=== PATIENT | female | born 1980 | race Caucasian/White ===

== ENCOUNTER → 2017-06-20 | Outpatient (CLI) | payer OTHER ==
--- NOTE | ~2017-06-20 | 2DMMODE ---
[facility] [place] [address] 2 D/M-MODE ECHOCARDIOGRAM Name: JUNIOR EDUARDO Room #: REG Praveen#: [id number] Admission: 06/20/17 Attend Phys: David Vallejo, Discharge: Date of : 76 Date of Service: 06/20/17 1451 Report #: [id number] THIS REPORT FOR: //name// APPROVED REPORT Study performed: 06/20/2017 10:25:58 EXAM: Comprehensive 2D, Doppler, and color-flow Echocardiogram Patient Location: Out-Patient Status: routine Other Information Study Quality: Fair Technically limited study due to morbid obesity. Indications History of possible aortic valve disease. Echo Enhancing Agent Indication: Endocardial border delineation Agent(s) / Amount(s) Used: Optison 3 cc 2D Dimensions RVDd: 39.85 mm LVEF(%): 65.88 (>50%) IVSd: 12.80 (7-11mm) LVOT Diam: 21.39 (18-24mm) LVDd: 58.72 mm PWd: 11.54 (7-11mm) LVDs: 37.09 (25-40mm) Aortic Root: 31.60 mm Yao's LVEF: 65.88 % Volumes Left Atrial Volume (Systole) Single Plane 4CH: 76.01 mL Single Plane 2CH: 75.08 mL LA ESV Index: 29.00 mL/m2 Aortic Valve AoV Peak Anselmo.: 2.30 m/s AO Peak Gr.: 21.20 mmHg LVOT Max P.54 mmHg AO Mean Gr.: 11.91 mmHg AO V2 Mean: 1.66 m/s LVOT Max V: 1.77 m/s AO V2 VTI: 43.53 cm FENG Vmax: 2.76 cm2 [facility] [place] [address] 2 D/M-MODE ECHOCARDIOGRAM Name: JUNIOR EDUARDO MAME Room #: KEVIN Morton#: [id number] Admission: 06/20/17 Attend Phys: David Vallejo, Discharge: Date of : 76 Date of Service: 06/20/17 1451 Report #: [id number] Mitral Valve E/A Ratio: 1.3 MV Decel. Time: 236.33 ms MV E Max Anselmo.: 1.21 m/s MV A Anselmo.: 0.95 m/s MV PHT: 68.54 ms IVRT: 59.98 ms Pulmonary Valve PV Peak Anselmo.: 1.32 m/s PV Peak Gr.: 6.95 mmHg Pulmonary Vein P Vein S: 0.71 m/s P Vein A: 0.28 m/s P Vein D: 0.59 m/s P Vein A Dur.: 143.0 msec P Vein S/D Ratio: 1.20 Tricuspid Valve RAP Estimate: 5.00 mmHg Left Ventricle The left ventricle is normal size. There is normal LV segmental wall motion. Left ventricular systolic function is normal. LVEF is 65%. The left ventricular diastolic function is normal. Right Ventricle The right ventricle is normal size. Atria Left atrium is at the upper limits of normal. The right atrium size is normal. Aortic Valve The aortic valve is poorly visualized. No aortic regurgitation noted. There is no aortic valvular stenosis. Mitral Valve The mitral valve is normal in structure. There is no mitral valve regurgitation noted. No evidence of mitral valve stenosis. Tricuspid Valve Tricuspid valve is not well visualized. Pulmonic Valve Pulmonic valve is not well visualized. Trace pulmonic regurgitation. [facility] [address] [place] [address] 2 D/M-MODE ECHOCARDIOGRAM Name: JUNIOR EDUARDO MAME Room #: KEVIN HEATHER Morton#: [id number] Admission: 06/20/17 Attend Phys: David Vallejo, Discharge: Date of : 76 Date of Service: 06/20/17 1451 Report #: [id number] Great Vessels The aortic root is normal in size. Ascending aorta is not well visualized. IVC is normal in size and collapses >50% with inspiration. Pericardium There is no pericardial effusion. <Conclusion> The left ventricle is normal size. Left ventricular systolic function is normal. The right ventricle is normal size. Left atrium is at the upper limits of normal. There is no aortic valvular stenosis. The mitral valve is normal in structure. There is no pericardial effusion. <ELECTRONICALLY SIGNED> By: Oscar Flores MD 06/20/17 1451 145 145 Oscar Flores MD /INF
== END ==
LOC: CV 09:52
DX: I10 Essential (primary) hypertension (principal); I35.9 Nonrheumatic aortic valve disorder, unspecified

== ENCOUNTER → 2017-09-26 | Outpatient (CLI) | payer OTHER ==
--- NOTE | ~2017-09-26 | 2DMMODE ---
[facility] [place] [address] 2 D/M-MODE ECHOCARDIOGRAM Name: JUNIOR EDUARDO Room #: REG [facility] [id number] Admission: 09/26/17 Attend Phys: David Vallejo, Discharge: Date of : 76 Date of Service: 09/26/17 1727 Report #: [id number] THIS REPORT FOR: //name// APPROVED REPORT Study performed: 09/26/2017 13:49:39 EXAM: Comprehensive 2D, Doppler, and color-flow Echocardiogram Patient Location: Out-Patient Room #: Echo lab Status: routine BSA: 2.85 HR: 70 bpm BP: 183/92 mmHg Other Information Study Quality: Adequate Indications Dyspnea Hypertension/HDD Echo Enhancing Agent Indication: Endocardial border delineation Agent(s) / Amount(s) Used: Optison 5 cc Left Ventricle The left ventricle is normal size. Regional wall motion is not well visualized but grossly normal. Mild concentric left ventricular hypertrophy. The left ventricular systolic function is normal. The left ventricular ejection fraction is within the normal range. LVEF is 65%. Right Ventricle The right ventricle is normal size. The right ventricular systolic function is normal. Atria The left atrium size is normal. The right atrium size is normal. Aortic Valve The aortic valve is not well visualized. Mitral Valve [facility] [employer] [place] [address] 2 D/M-MODE ECHOCARDIOGRAM Name: JUNIOR EDUARDO Room #: REG [facility]annaMemo#: [id number] Admission: 09/26/17 Attend Phys: David Vallejo, Discharge: Date of : 76 Date of Service: 09/26/171726 Report #: [id number] The mitral valve is normal in structure. Tricuspid Valve Tricuspid valve is not well visualized. Pulmonic Valve Pulmonic valve is not well visualized. Great Vessels The aortic root is normal in size. Pericardium There is no pericardial effusion. <Conclusion> Very limited study. Abbreviated The left ventricular systolic function is normal. Regional wall motion is not well visualized but grossly normal. LVEF is 65%. The aortic valve is not well visualized. The mitral valve is normal in structure. There is no pericardial effusion. <ELECTRONICALLY SIGNED> By: Isrrael Ervin MD, FACC 09/26/171726 26 26 Isrrael Ervin MD, FACC /INF
== END ==
LOC: ULTRA 11:02 → CV 11:02
DX: I10 Essential (primary) hypertension (principal)